=== PATIENT | female | born 1955 | race Caucasian/White ===

== ENCOUNTER 2017-04-08 16:01 | Emergency (ER) | payer MEDICARE, OTHER ==
[~2017-04-08] VITALS: Ht 167.6 cm; Wt 113.5 kg
[~2017-04-08 16:01] MED LIST: CENTTAB9 PO; HYDR-4197 PO; LEVO75TA3 PO; METO25 PO; PRAV10 PO; RIVA10 PO; VITATAB25 PO; Z.0.WALKERFRONT
[2017-04-08 16:03] VITALS: BP 185/88; PULSE 88; RESP 15; TEMP 97.9; O2SAT 98
[2017-04-08] MEDS ORDERED: PRAV10TA PO (16:29)
[2017-04-08] MEDS ORDERED: DICL75TA PO (16:29)
[2017-04-08] MEDS ORDERED: LEVO75TA3 PO (16:29)
[2017-04-08] MEDS ORDERED: METO25TA3 PO (16:29)
[2017-04-08] MEDS ORDERED: CENTCHW4 CHEW (16:29)
[2017-04-08] MEDS ORDERED: SODIUM CHLOR 0.9% 1000 ML INJ 1,000 ML IV SCH (16:32)
[2017-04-08] MEDS ORDERED: SODIUM CHLORIDE 0.9% FLUSH 10 ML FLUSH IV FLUSH PRN (16:45)
[2017-04-08 16:58] LABS: AUTOMATED NEUTROPHIL # 6.1 TH/MM3 (1.8-7.7); BASOPHIL # 0.1 TH/MM3 (0-0.2); BASOPHIL % 0.6 % (0.0-2.0); EOSINOPHIL # 0.2 TH/MM3 (0-0.4); EOSINOPHIL % 2.4 % (0.0-4.0); HEMATOCRIT 39.3 % (35.0-46.0); HEMOGLOBIN 13.1 GM/DL (11.6-15.3); LYMPH % 22.8 % (9.0-44.0); MEAN CELL VOLUME 86.2 FL (80.0-100.0); MEAN CORPUSCULAR HEMOGLOBIN 28.7 PG (27.0-34.0); MEAN CORPUSCULAR HGB CONC 33.4 % (32.0-36.0); MEAN PLATELET VOLUME 8.5 FL (7.0-11.0); MONO % 5.6 % (0.0-8.0); MONOCYTE # 0.5 TH/MM3 (0-0.9); NEUT % 68.6 % (16.0-70.0); PLATELET COUNT 232 TH/MM3 (150-450); RED BLOOD COUNT 4.56 MIL/MM3 (4.00-5.30); RED CELL DISTRIBUTION WIDTH 15.2 % (11.6-17.2)
--- NOTE | 2017-04-08 17:07 | RADRPT ---
EXAM DATE/TIME: 04/08/2017 16:51 [facility] COMPARISON: No previous studies available for comparison. INDICATIONS : Altered mental status, dizziness. Fall onto head today. RADIATION DOSE: 44.48 CTDIvol (mGy) MEDICAL HISTORY : Hypertension. SURGICAL HISTORY : Tubal ligation. Cholecystectomy. ENCOUNTER: Initial ACUITY: 1 day PAIN SCALE: 5/10 LOCATION: Bilateral head TECHNIQUE: Multiple contiguous axial images were obtained of the head. Using automated exposure control and adj ustment of the mA and/or kV according to patient size, radiation dose was kept as low as reasonably a chievable to obtain optimal diagnostic quality images. DICOM format image data is available electro nically for review and comparison. FINDINGS: There is no evidence for intracranial hemorrhage, mass effect, mass lesions, edema, or extra-axial fl uid collections. The visualized bony structures appear intact. Ventriculostomy tube is present from a right sided approach with tip in the right lateral horn and there is encephalomalacia in the right temporal and parts of the parietal lobe. There is slight ventriculomegaly which also involves the thi rd ventricle. There are no signs of acute infarction for technique. CONCLUSION: Chronic changes without evidence for hemorrhage or mass effect. Felicitas Suresh MD on April 08, 2017 at 17:03 Board Certified Radiologist. This report was verified electronically.
--- NOTE | 2017-04-08 17:14 | RADRPT ---
EXAM DATE/TIME: 04/08/2017 17:00 [facility] COMPARISON: No previous studies available for comparison. INDICATIONS : Dizziness. MEDICAL HISTORY : None. SURGICAL HISTORY : Shunt. ENCOUNTER: Initial ACUITY: 1 day PAIN SCORE: 0/10 LOCATION: Bilateral chest FINDINGS: The lungs are clear without infiltrate, nodule, or mass. There is no appreciable pleural effusion fo r technique. Heart and mediastinum are unremarkable. BARREL BRANDER shunt is identified on the right and the rig ht hemidiaphragm is elevated. CONCLUSION: No acute cardiopulmonary disease. Felicitas Suresh MD on April 08, 2017 at 17:12 Board Certified Radiologist. This report was verified electronically.
[2017-04-08 17:16] LABS: ALT (GPT) 84 U/L (10-53)
[2017-04-08 17:17] LABS: ALBUMIN 3.7 GM/DL (3.4-5.0); AST (GOT) 85 U/L (15-37); BICARBONATE 22.4 MEQ/L (21.0-32.0); BLOOD UREA NITROGEN 14 MG/DL (7-18); CALCIUM 9.3 MG/DL (8.5-10.1); CHLORIDE 104 MEQ/L (98-107); CREATININE 0.68 MG/DL (0.50-1.00); GLOMERULAR FILTRATION RATE 88 ML/MIN (>89); GLUCOSE,RANDOM 87 MG/DL (74-106); SODIUM (NA) 136 MEQ/L (136-145)
[2017-04-08 17:26] LABS: ALKALINE PHOSPHATASE 219 U/L (45-117); TOTAL BILIRUBIN ADULT 0.4 MG/DL (0.2-1.0); TOTAL PROTEIN 8.4 GM/DL (6.4-8.2)
[2017-04-08] MEDS ORDERED: SODIUM CHLOR 0.9% 1000 ML INJ 1,000 ML IV ONE (17:45)
[2017-04-08 17:48] VITALS: BP 144/77; PULSE 84; RESP 18; O2SAT 95
--- NOTE | 2017-04-08 17:50 | PD ---
HPI Chief Complaint: Dizziness Time Seen by Provider: 16:20 Travel History International Travel<30 days: No Contact w/Intl Traveler<30days: No Traveled to known affect area: No History of Present Illness HPI Diagnoses a 61-year-old male with a history of hypertension, hyperlipidemia, chronic hydrocephalus with a [employer] shunt, presents today with complaints of dizziness. The patient reports that it started this morning. She reports it as positional. She states that even when she lies flat she feels as though the room is spinning. Patient also reports blurry vision. There is no reported nausea vomiting diarrhea. There is no reported headache. The patient reports not having any recent issues with her [employer] shunt. PFSH Past Medical History Anemia: Yes Arthritis: Yes Asthma: No Anxiety: No Depression: Yes Heart Rhythm Problems: No Cancer: No Cardiovascular Problems: No High Cholesterol: No Chemotherapy: No Chest Pain: No Congestive Heart Failure: No COPD: No Cerebrovascular Accident: No Diabetes: No Diminished Hearing: No Endocrine: No Gastrointestinal Disorders: Yes (N/V WITH MIGRAINES) GERD: No Glaucoma: No Genitourinary: No Headaches: No Hepatitis: No Hiatal Hernia: No Hypertension: Yes Immune Disorder: No Kidney Stones: No Medical other: Yes (HX OF MIGRAINES, TIA 2007, SHORT TERM MEMORY LOSS) Musculoskeletal: Yes (CHRONIC UPPER BACK, KNEE PAIN, HNP LOWER BACK, ) Neurologic: Yes (CONGENITAL HYDROCEPHALUS, SEIZURE IN TEENS, MINIMAL SHORT TERM MEMORY) Psychiatric: No Reproductive: No Respiratory: No Migraines: No Myocardial Infarction: No Radiation Therapy: No Renal Failure: No Seizures: No Sickle Cell Disease: No Sleep Apnea: No Thyroid Disease: Yes Ulcer: No Influenza Vaccination: No Menopausal: Yes Para: 2 Tubal Ligation: Yes Past Surgical History Abdominal Surgery: Yes (CHOLECYSTECTOMY 2011) AICD: No Arteriovenous Shunt: No Body Medical Devices: [employer] SHUNT Cardiac Surgery: No Cholecystectomy: Yes Ear Surgery: No Endocrine Surgery: No Eye Surgery: No Genitourinary Surgery: No Gynecologic Surgery: Yes (TUBAL LIGATION 1992) Insulin Pump: No Joint Replacement: No Neurologic Surgery: Yes (MA[employer]GER [employer] shunt 2002, SUBDURAL HEMATOMA EVACUATION 2003) Oral Surgery: No Pacemaker: No Thoracic Surgery: No Other Surgery: Yes (Sublingual hematoma 2002, arthroscopy 2000) Social History Alcohol Use: No Tobacco Use: No Substance Use: No Allergies-Medications (Allergen,Severity, Reaction): Coded Allergies: codeine (Unverified Allergy, Severe, Rash, 04/08/17) Sulfa (Sulfonamide Antibiotics) (Unverified Allergy, Intermediate, RASH, 04/08/17) bacitracin (Unverified Allergy, Intermediate, Rash, 04/08/17) hydrogen peroxide (Unverified Allergy, Intermediate, Rash, 04/08/17) iodine (Unverified Allergy, Intermediate, RASH, 04/08/17) levofloxacin (Unverified Allergy, Intermediate, Rash, 04/08/17) penicillin G (Unverified Allergy, Intermediate, RASH, 04/08/17) potassium iodide (Unverified Allergy, Intermediate, RASH, 04/08/17) povidone-iodine (Unverified Allergy, Intermediate, Rash, 04/08/17) Reported Meds & Prescriptions Reported Meds & Active Scripts Active Meclizine (Meclizine HCl) 25 Mg Tab 25 Mg PO TID PRN Macrobid (Nitrofurantoin Monohydrate Macrocrystals) 100 Mg Capsule 100 Mg PO BID 14 Days Reported Centrum (Multiple Vitamins W/ Minerals) 1 Chew 1 Tab CHEW DAILY Diclofenac Sodium DR (Diclofenac Sodium) 75 Mg Tabdr Unknown Dose PO BID Pravastatin 10 Mg Tab 10 Mg PO DAILY Metoprolol Tartrate 25 Mg Tab 25 Mg PO BID Levothyroxine (Levothyroxine Sodium) 75 Mcg Tab 75 Mcg PO DAILY Review of Systems Except as stated in HPI: all other systems reviewed are Neg General / Constitutional: No: Fever, Chills Eyes: Positive: Blurred Vision HENT: Positive: Vertigo, Lightheadedness, No: Headaches, Neck Pain Cardiovascular: No: Chest Pain or Discomfort, Palpitations Respiratory: No: Cough, Shortness of Breath Gastrointestinal: No: Nausea, Vomiting, Abdominal Pain Genitourinary: No: Dysuria, Incontinence Musculoskeletal: No: Weakness, Pain Neurologic: Positive: Dizziness, Other (unsteady gait), No: Weakness, Headache Physical Exam Narrative GENERAL: Well developed well-nourished female in no acute respiratory distress SKIN: Focused skin assessment warm/dry. HEAD: Atraumatic. Normocephalic. EYES: Extra muscles were intact. No scleral icterus. No injection or drainage. ENT: No nasal bleeding or discharge. Mucous membranes pink and moist. NECK: Trachea midline. Supple. CARDIOVASCULAR: Regular rate and rhythm. No murmur appreciated. RESPIRATORY: No accessory muscle use. Clear to auscultation. Breath sounds equal bilaterally. GASTROINTESTINAL: Abdomen soft, obese, non-tender, nondistended. MUSCULOSKELETAL: No obvious deformities. No clubbing. No cyanosis. No edema. NEUROLOGICAL: Awake and alert. No obvious cranial nerve deficits. Motor grossly within normal limits. Normal speech. Subjective dizziness. Data Data Last Documented VS Vital Signs Date Time Temp Pulse Resp B/P (MAP) Pulse Ox O2 Delivery O2 Flow Rate FiO2 04/08/17 17:48 84 18 144/77 (99) 95 Room Air 04/08/17 16:03 97.9 Orders Orders Complete Blood Count With Diff (04/08/17 16:32) Comprehensive Metabolic Panel (04/08/17 16:32) Prothrombin Time / Inr (Pt) (04/08/17 16:32) Act Partial Throm Time (Ptt) (04/08/17 16:32) Thyroid Stimulating Hormone (04/08/17 16:32) Urinalysis - C+S If Indicated (04/08/17 16:32) Chest, Single Ap (04/08/17 16:32) Ct Brain W/O Iv Contrast(Rout) (04/08/17 16:32) Blood Glucose (04/08/17 16:32) Ecg Monitoring (04/08/17 16:32) Iv Access Insert/Monitor (04/08/17 16:32) Oximetry (04/08/17 16:32) Sodium Chloride 0.9% Flush (Ns Flush) (04/08/17 16:45) Sodium Chlor 0.9% 1000 Ml Inj (Ns 1000 M (04/08/17 16:32) Sodium Chlor 0.9% 1000 Ml Inj (Ns 1000 M (04/08/17 17:45) Urine Culture (04/08/17 17:15) Meclizine (Antivert) (04/08/17 18:45) Nitrofurantoin Monohyd Macrocr (Macrobid (04/08/17 19:15) Labs Laboratory Tests Test 04/08/17 16:45 04/08/17 17:15 04/08/17 17:20 White Blood Count 9.0 TH/MM3 Red Blood Count 4.56 MIL/MM3 Hemoglobin 13.1 GM/DL Hematocrit 39.3 % Mean Corpuscular Volume 86.2 FL Mean Corpuscular Hemoglobin 28.7 PG Mean Corpuscular Hemoglobin Concent 33.4 % Red Cell Distribution Width 15.2 % Platelet Count 232 TH/MM3 Mean Platelet Volume 8.5 FL Neutrophils (%) (Auto) 68.6 % Lymphocytes (%) (Auto) 22.8 % Monocytes (%) (Auto) 5.6 % Eosinophils (%) (Auto) 2.4 % Basophils (%) (Auto) 0.6 % Neutrophils # (Auto) 6.1 TH/MM3 Lymphocytes # (Auto) 2.0 TH/MM3 Monocytes # (Auto) 0.5 TH/MM3 Eosinophils # (Auto) 0.2 TH/MM3 Basophils # (Auto) 0.1 TH/MM3 CBC Comment DIFF FINAL Differential Comment Blood Urea Nitrogen 14 MG/DL Creatinine 0.68 MG/DL Random Glucose 87 MG/DL Total Protein 8.4 GM/DL Albumin 3.7 GM/DL Calcium Level 9.3 MG/DL Alkaline Phosphatase 219 U/L Aspartate Amino Transf (AST/SGOT) 85 U/L Alanine Aminotransferase (ALT/SGPT) 84 U/L Total Bilirubin 0.4 MG/DL Sodium Level 136 MEQ/L Potassium Level 5.0 MEQ/L Chloride Level 104 MEQ/L Carbon Dioxide Level 22.4 MEQ/L Anion Gap 10 MEQ/L Estimat Glomerular Filtration Rate 88 ML/MIN Thyroid Stimulating Hormone 3rd Gen 2.330 uIU/ML Urine Color LIGHT-YELLOW Urine Turbidity CLEAR Urine pH 6.0 Urine Specific [place] 1.013 Urine Protein NEG mg/dL Urine Glucose (UA) NEG mg/dL Urine Ketones NEG mg/dL Urine Occult Blood SMALL Urine Nitrite NEG Urine Bilirubin NEG Urine Urobilinogen LESS THAN 2.0 MG/DL Urine Leukocyte Esterase MOD Urine RBC 7 /hpf Urine WBC 7 /hpf Urine Squamous Epithelial Cells 2 /hpf Urine Bacteria RARE /hpf Urine Mucus FEW /lpf Microscopic Urinalysis Comment CATH-CULTURE IND Prothrombin Time 10.1 SEC Prothromb Time International Ratio 1.0 RATIO Activated Partial Thromboplast Time 27.4 SEC [facility] Medical Decision Making Medical Screen Exam Complete: Yes Emergency Medical Condition: Yes Differential Diagnosis [employer] shunt nonfunction versus posterior circulation stroke versus metabolic arrangement versus dehydration versus anemia. Narrative Course 61-year-old female with history of congenital hydronephrosis was MA[employer] shunt placed , presents here with complaints of dizziness. Patient has a fevers, chills. There is no reported numbness or weakness of her extremities. She does report blurry vision however was not wearing her glasses. Patient also reported as though she felt the room was spinning. The patient has no focal deficits other than the subjective dizziness. She does have history of mild dementia and her does provide a good portion of her history. Labs are within normal limits other than an elevated LFTs which she's had before. Patient's CT scan shows no evidence of acute process. The urinalysis does show evidence of an infection. The patient's been given 1 L of IV fluids. She's also been given 25 mg of meclizine. She reports feeling much improved. She's been given 100 mg of Macrobid times one dose. She'll prescription written for 7 days of Macrobid. She's instructed to follow up if she develops any worsening symptoms. Looking through old records, the patient has had vertigo in the past. Diagnosis Primary Impression: Vertigo Additional Impressions: Urinary tract infection history of congenital hydrocephalus Additional Instructions: Drink plenty of fluids. Return if feeling worse. Follow up with her primary care physician. Take antibiotics as prescribed. Meclizine as needed for dizziness. Scripts Meclizine (Meclizine) 25 Mg Tab 25 MG PO TID Y for VERTIGO, #20 TAB 0 Refills Prov: Singh Venegas MD 04/08/17 Nitrofurantoin Monohydrate Macrocrystals (Macrobid) 100 Mg Capsule 100 MG PO BID for Infection for 14 Days, #28 CAP 0 Refills Prov: Singh Venegas MD 04/08/17 Disposition: 01 DISCHARGE HOME Condition: Stable Singh Venegas MD Apr 08, 2017 17:50
[2017-04-08 17:55] LABS: BACTERIA, URINE RARE /hpf; BILIRUBIN, URINE NEG (NEG); BLOOD, URINE SMALL (NEG); GLUCOSE,URINE NEG (NEG); KETONE, URINE NEG (NEG); MUCUS URINE FEW /lpf (OCC); NITRITE,URINE NEG (NEG); SQUAMOUS EPITHELIAL CELL URINE 2 /hpf (0-5); URINE COLOR LIGHT-YELLOW (YELLW/STRAW); URINE LEUKOCYTE ESTERASE MOD (NEG)
[2017-04-08 18:21] LABS: PROTHROMBIN TIME - PATIENT 10.1 SEC (9.8-11.6)
[2017-04-08] MEDS ORDERED: MECLIZINE HCL 25 MG TAB PO ONE (18:45)
[2017-04-08] MEDS ORDERED: MACR100C2 PO (19:09)
[2017-04-08] MEDS ORDERED: NITROFURANTOIN MONOHYD MACROCR 100 MG CAP PO ONE (19:15)
[2017-04-08] MEDS ORDERED: MECL-62 PO (19:15)
[2017-04-08 19:38] VITALS: BP 136/92; PULSE 82; RESP 18; O2SAT 94
--- NOTE | 2017-04-08 22:42 | EKG ---
Date Performed: 04/08/2017 Time Performed: 16:30:04 PTAGE: 61 years EKG: Sinus rhythm NORMAL ECG INTERPRETATION BASED ON A DEFAULT AGE OF 40 YEARS PREVIOUS TRACING : 10/25/2013 06.35 Compared to prior tracing no significant change DOCTOR: Jerod Chandler Interpretating Date/Time 04/08/2017 22:41:18
[2017-04-09] MEDS ORDERED: ZOFR4TAB3 SL (10:14)
== END 2017-04-08 19:41 | disposition home or self-care (01) ==
LOC: NEPC 16:01
DX: R42 Dizziness and giddiness (principal); N39.0 Urinary tract infection, site not specified; E78.5 Hyperlipidemia, unspecified; I10 Essential (primary) hypertension; Z79.899 Other long term (current) drug therapy; Z98.2 Presence of cerebrospinal fluid drainage device; Z86.69 Personal history of other diseases of the nervous system and sense organs
CPT/HCPCS: 70450; 71010; 80053; 81001; 84443; 85025; 85610; 85730; 87086; 93005; 96360; 96361; 99285; J7030

== ENCOUNTER 2017-04-09 08:19 | Emergency (ER) | payer OTHER ==
[~2017-04-09] VITALS: Ht 170.2 cm; Wt 113.0 kg
[~2017-04-09 08:19] MED LIST changes: +CENTCHW4 CHEW; -CENTTAB9 PO; +DICL75TA PO; -HYDR-4197 PO; +MACR100C2 PO; +MECL-62 PO; -METO25 PO; +METO25TA3 PO; -PRAV10 PO; +PRAV10TA PO; -RIVA10 PO; -VITATAB25 PO; -Z.0.WALKERFRONT
[2017-04-09 08:21] VITALS: BP 188/88; PULSE 83; RESP 16; TEMP 97.6
[2017-04-09] MEDS ORDERED: MECLIZINE HCL 25 MG TAB PO ONE (08:30)
[2017-04-09] MEDS ORDERED: ONDANSETRON ODT 4 MG TAB PO ONE (08:30)
--- NOTE | 2017-04-09 08:47 | PD ---
HPI Chief Complaint: GI Complaint Time Seen by Provider: 08:28 Travel History International Travel<30 days: No Contact w/Intl Traveler<30days: No Traveled to known affect area: No History of Present Illness HPI 61 y/o female presents with continued vertigo that is gotten to the point that she's had episode of bloody emesis. She states she cannot find a pharmacy open to get her meclizine. She denies any other new complaints such yesterday. She feels worse when she moves around. She denies other modifying factors. Quality is dizzy. Severity is leading to vomiting. Duration is since discharge from yesterday. PFSH Past Medical History Anemia: Yes Arthritis: Yes Asthma: No Anxiety: No Depression: Yes Heart Rhythm Problems: No Cancer: No Cardiovascular Problems: No High Cholesterol: No Chemotherapy: No Chest Pain: No Congestive Heart Failure: No COPD: No Cerebrovascular Accident: No Diabetes: No Diminished Hearing: No Endocrine: No Gastrointestinal Disorders: Yes (N/V WITH MIGRAINES) GERD: No Glaucoma: No Genitourinary: No Headaches: No Hepatitis: No Hiatal Hernia: No Hypertension: Yes Immune Disorder: No Kidney Stones: No Medical other: Yes (HX OF MIGRAINES, TIA 2006, SHORT TERM MEMORY LOSS) Musculoskeletal: Yes (CHRONIC UPPER BACK, KNEE PAIN, HNP LOWER BACK, ) Neurologic: Yes (CONGENITAL HYDROCEPHALUS, SEIZURE IN TEENS, MINIMAL SHORT TERM MEMORY) Psychiatric: No Reproductive: No Respiratory: No Migraines: No Myocardial Infarction: No Radiation Therapy: No Renal Failure: No Seizures: No Sickle Cell Disease: No Sleep Apnea: No Thyroid Disease: Yes Ulcer: No Menopausal: Yes Para: 2 Tubal Ligation: Yes Past Surgical History Abdominal Surgery: Yes (CHOLECYSTECTOMY 2011) AICD: No Arteriovenous Shunt: No Body Medical Devices: [employer] SHUNT Cardiac Surgery: No Cholecystectomy: Yes Ear Surgery: No Endocrine Surgery: No Eye Surgery: No Genitourinary Surgery: No Gynecologic Surgery: Yes (TUBAL LIGATION 1992) Insulin Pump: No Joint Replacement: No Neurologic Surgery: Yes ([employer] OFF[employer] shunt 2002, SUBDURAL HEMATOMA EVACUATION 2003) Oral Surgery: No Pacemaker: No Thoracic Surgery: No Other Surgery: Yes (Sublingual hematoma 2002, arthroscopy 2000) Social History Alcohol Use: No Tobacco Use: No Substance Use: No Allergies-Medications (Allergen,Severity, Reaction): Coded Allergies: codeine (Unverified Allergy, Severe, Rash, 04/09/17) Sulfa (Sulfonamide Antibiotics) (Unverified Allergy, Intermediate, RASH, 04/09/17) bacitracin (Unverified Allergy, Intermediate, Rash, 04/09/17) hydrogen peroxide (Unverified Allergy, Intermediate, Rash, 04/09/17) iodine (Unverified Allergy, Intermediate, RASH, 04/09/17) levofloxacin (Unverified Allergy, Intermediate, Rash, 04/09/17) penicillin G (Unverified Allergy, Intermediate, RASH, 04/09/17) potassium iodide (Unverified Allergy, Intermediate, RASH, 04/09/17) povidone-iodine (Unverified Allergy, Intermediate, Rash, 04/09/17) Reported Meds & Prescriptions Reported Meds & Active Scripts Active Zofran Odt (Ondansetron Odt) 4 Mg Tab 4 Mg SL Q6HR PRN Meclizine (Meclizine HCl) 25 Mg Tab 25 Mg PO TID PRN Macrobid (Nitrofurantoin Monohydrate Macrocrystals) 100 Mg Capsule 100 Mg PO BID 14 Days Reported Centrum (Multiple Vitamins W/ Minerals) 1 Chew 1 Tab CHEW DAILY Diclofenac Sodium DR (Diclofenac Sodium) 75 Mg Tabdr Unknown Dose PO BID Pravastatin 10 Mg Tab 10 Mg PO DAILY Metoprolol Tartrate 25 Mg Tab 25 Mg PO BID Levothyroxine (Levothyroxine Sodium) 75 Mcg Tab 75 Mcg PO DAILY Review of Systems Except as stated in HPI: all other systems reviewed are Neg Physical Exam Narrative GENERAL: Well-nourished, well-developed patient. well appearing SKIN: Warm and dry. HEAD: Normocephalic and atraumatic. EYES: No injection or drainage. ENT: No nasal drainage noted. NECK: Supple, trachea midline. CARDIOVASCULAR: Regular rate and rhythm RESPIRATORY: Breath sounds equal bilaterally at apices. No accessory muscle use. GASTROINTESTINAL: Abdomen soft, non-tender, nondistended. EXTREMITIES: No edema. NEUROLOGICAL: Awake and alert. moves all extremities and sensory grossly within normal limits. Normal speech. Data Data Last Documented VS Vital Signs Date Time Temp Pulse Resp B/P (MAP) Pulse Ox O2 Delivery O2 Flow Rate FiO2 04/09/17 08:21 97.6 83 16 188/88 (121) Room Air Orders Orders Meclizine (Antivert) (04/09/17 08:30) Ondansetron Odt (Zofran Odt) (04/09/17 08:30) Nitrofurantoin Monohyd Macrocr (Macrobid (04/09/17 09:00) Ed Discharge Order (04/09/17 10:15) [facility] Medical Decision Making Medical Screen Exam Complete: Yes Emergency Medical Condition: Yes Medical Record Reviewed: Yes (pmh confirmed ) Differential Diagnosis vertigo, gastroenteritis, electrolyte abnormality... Narrative Course will dose with meclizine and zofran and reassess, patient in agreement to this, recent testing yesterday reviewed No emesis here Will provide with Macrobid and if can tolerate that can Go home No emesis here,Patient denies any new complaints and states that they are feeling better. Patient happy with care, all questions answered. Patient knows that follow up is incumbent on them and to return to the emergency room immediately if new or worsening symptoms develop. Patient given strict return precautions, vitals reviewed and are normal, agrees to further workup as an outpatient. Diagnosis Primary Impression: Dizziness Additional Impression: Vomiting Qualified Codes: R11.10 - Vomiting, unspecified Patient Instructions: General Instructions Additional Instructions: return as needed, fill your prescriptions, follow with primary monday Med/Other Pt SpecificInfo: Prescription(s) given Scripts Ondansetron Odt (Zofran Odt) 4 Mg Tab 4 MG SL Q6HR Y for Nausea/Vomiting, #10 TAB 0 Refills Prov: Gauri Singletary MD 04/09/17 Disposition: 01 DISCHARGE HOME Condition: Stable Gauri Singletary MD Apr 09, 2017 08:47
[2017-04-09] MEDS ORDERED: NITROFURANTOIN MONOHYD MACROCR 100 MG CAP PO ONE (09:00)
[2017-04-09] MEDS ORDERED: ZOFR4TAB3 SL (10:14)
== END 2017-04-09 10:28 | disposition home or self-care (01) ==
LOC: NEPC 08:19
DX: R42 Dizziness and giddiness (principal); R11.10 Vomiting, unspecified; D64.9 Anemia, unspecified; M19.90 Unspecified osteoarthritis, unspecified site; F32.9 Major depressive disorder, single episode, unspecified; I10 Essential (primary) hypertension; R56.9 Unspecified convulsions; Z86.73 Personal history of transient ischemic attack (TIA), and cerebral infarction without residual deficits; Z79.899 Other long term (current) drug therapy
CPT/HCPCS: 99283